=== PATIENT | male | born 1965 | race Caucasian/White ===

== ENCOUNTER 2017-04-18 20:54 | Emergency (ER) | payer OTHER ==
[2017-04-18] MEDS ORDERED: HYDROmorphONE/DILAUDID 1 MG/ML INJ IVP ONE (21:00)
[2017-04-18] MEDS ORDERED: NS 1,000 ML IV ONE (21:00)
--- NOTE | 2017-04-18 21:04 | EDPHY ---
H & P Time Seen by Provider: 04/18/17 21:00 HPI/ROS: CHIEF COMPLAINT: Burn HISTORY OF PRESENT ILLNESS: The patient is a 51-year-old man who comes to the emergency department by EMS complaining of a burn to his right flank and arm. He was working on a pipe when it burst open and steam sprayed onto his clothing and burned him through his clothing. No injury to his face or head or airway. He was given fentanyl by EMS and his pain went from an 8 to a 3. He has a history of hypertension. REVIEW OF SYSTEMS: Constitutional: denies: chills, fever, recent illness, recent injury EENTM: denies: blurred vision, double vision, nose congestion Respiratory: denies: cough, shortness of breath Cardiac: denies: chest pain, irregular heart rate, lightheadedness, palpitations Gastrointestinal/Abdominal: denies: abdominal pain, diarrhea, nausea, vomiting, blood streaked stools Genitourinary: denies: dysuria, frequency, hematuria, pain Musculoskeletal: denies: joint pain, muscle pain Skin: See HPI Neurological: denies: headache, numbness, paresthesia, tingling, dizziness, weakness Hematologic/Lymphatic: denies: blood clots, easy bleeding, easy bruising Immunologic/allergic: denies: HIV/AIDS, transplant EXAM: GENERAL: Well-appearing, well-nourished and in no acute distress. HEAD: Atraumatic, normocephalic. EYES: Pupils equal round and reactive to light, extraocular movements intact, sclera anicteric, conjunctiva are normal. ENT: TMs normal, nares patent, oropharynx clear without exudates. Moist mucous membranes. NECK: Normal range of motion, supple without lymphadenopathy or JVD. LUNGS: Breath sounds clear to auscultation bilaterally and equal. No wheezes rales or rhonchi. HEART: Regular rate and rhythm without murmurs, rubs or gallops. ABDOMEN: Soft, nontender, normoactive bowel sounds. No guarding, no rebound. No masses appreciated. BACK: No CVA tenderness, no spinal tenderness, step-offs or deformities EXTREMITIES: Normal range of motion, no pitting or edema. No clubbing or cyanosis. NEUROLOGICAL: Cranial nerves II through XII grossly intact. Normal speech, normal gait. 5/5 strength, normal movement in all extremities, normal sensation PSYCH: Normal mood, normal affect. SKIN: 2nd degree burn to right flank 2% body surface area surrounded by about 10% of body surface area 1st degree burn. Right arm has about 2% body surface area 2nd degree burn to right elbow/forearm with about 4% body surface area 1st degree burn surrounding. Patient also has 1st degree burn to his right gluteus and posterior thighs and part of his scrotum. Source: Patient Exam Limitations: No limitations - Personal History Current Tetanus/Diphtheria Vaccine: No - Medical/Surgical History Hx Asthma: No Hx Chronic Respiratory Disease: No Hx Diabetes: No Hx Cardiac Disease: No Hx Renal Disease: No Hx Cirrhosis: No Hx Alcoholism: No Hx HIV/AIDS: No - Family History Significant Family History: No pertinent family hx - Social History Alcohol Use: Sober Drug Use: None Constitutional: Initial Vital Signs Temperature (C) 36.7 C 04/18/17 20:54 Heart Rate 105 H 04/18/17 20:54 Respiratory Rate 24 H 04/18/17 20:54 Blood Pressure 162/107 H 04/18/17 20:54 O2 Sat (%) 96 04/18/17 20:54 O2 Delivery Mode [Post Nasal Cannula Procedure 3rd] O2 Delivery Mode [Post Non-Rebreather Mask Procedure 2nd] O2 Delivery Mode [Post Non-Rebreather Mask Procedure 1st] O2 Delivery Mode [Procedural Non-Rebreather Mask 4th] O2 Delivery Mode [Procedural Non-Rebreather Mask 2nd] O2 Delivery Mode [Procedural Non-Rebreather Mask 1st] O2 Delivery Mode [.Immediate Non-Rebreather Mask Pre-Procedure] O2 Delivery Mode Room Air O2 (L/minute) [Post Procedure 2 3rd] O2 (L/minute) [Post Procedure 15 2nd] O2 (L/minute) [Post Procedure 15 1st] O2 (L/minute) [Procedural 4th] 15 O2 (L/minute) [Procedural 3rd] 15 O2 (L/minute) [Procedural 2nd] 15 O2 (L/minute) [Procedural 1st] 15 O2 (L/minute) [.Immediate Pre- 15 Procedure] Allergies/Adverse Reactions: Penicillins Allergy (Verified 04/18/17 22:46) Home Medications: Medication Instructions Recorded Hydrocodone/APAP 5/325 [[place] 1 - 2 tab PO Q4H PRN #10 tab 04/18/17 5/325 (RX)] Medical Decision Making Procedures: Procedure: Procedural sedation. Indication: Debridement. A pre-sedation evaluation was completed on the patient just prior to the procedure. Patient is an appropriate candidate for procedural sedation with a normal 3-3-2 rule assessment and a Mallampati airway score of class 1. The risks of the sedation were discussed including but not limited to dysrhythmia, need for airway intervention or general anesthesia, disability, ; and verbal consent obtained. A timeout was observed and patient's identity confirmed. The patient was sedated with ketamine 100 mg. The patient was monitored with continuous pulse oximetry, capnography, and lunchroom monitor. There were no complications and no significant hypoxemia. I remained at the bedside for the sedation. The total time I spent in the procedural sedation was 16 minutes. The patient's 2nd degree maher were debrided with sterile water and sterile 4x4s. They were then dressed with bacitracin, Telfa and sterile gauze. He tolerated the procedure well. ED Course/Re-evaluation: 10:45 p.m. The patient is doing much better. I will treat him with Toradol for pain. I will give him a prescription for Vicodin if needed. We discussed limited use. I will prepare paperwork for discharge. Differential Diagnosis: Partial list of the Differential diagnosis considered include but were not limited to; 2nd degree burn, 1st degree and although unlikely based on the history and physical exam, I also considered third-degree burn, non accidental trauma, toxic exposure. I discussed these differential diagnoses and the plan with the patient as well as the usual and expected course. The patient understands that the diagnosis is provisional and that in medicine we are not always correct and that further workup is often warranted. Usual and customary warnings were given. All of the patient's questions were answered. The patient was instructed to return to the emergency department should the symptoms at all worsen or return, otherwise to followup with the physician as we discussed. - Data Points Medications Given: Discontinued Medications Hydrocodone Bitart/Acetaminophen ([place] 5/325mg Prepack#6) 1 btl TAKEHOME EDNOW ONE Stop: 04/18/17 23:38 Last Admin: 04/18/17 23:47 Dose: 1 btl Hydromorphone HCl (Dilaudid) 1 mg IVP EDNOW ONE Stop: 04/18/17 21:01 Last Admin: 04/18/17 21:25 Dose: 1 mg Sodium Chloride (Ns) 1,000 mls @ 0 mls/hr IV ONCE ONE; Wide Open PRN Reason: Protocol Stop: 04/18/17 21:01 Last Admin: 04/18/17 21:20 Dose: 1,000 mls Ketamine HCl (Ketamine) 90 mg IVP EDNOW ONE Stop: 04/18/17 21:36 Last Admin: 04/18/17 21:36 Dose: 90 mg Ketorolac Tromethamine (Toradol) 15 mg IVP EDNOW ONE Stop: 04/18/17 22:47 Last Admin: 04/18/17 23:03 Dose: 15 mg Departure - Departure Disposition: Home, Routine, Self-Care Clinical Impression: 2nd degree burn, First degree burn Condition: Fair Instructions: Second Degree Burn (ED) Additional Instructions: Continue to dress her wounds with bacitracin and gauze as instructed twice daily and follow up with Dr. Yeh from surgery. Referrals: Patient,NotPresent [Unknown] - As per Instructions Alfonso Yeh MD [Medical Doctor] - As per Instructions Prescriptions: Hydrocodone/APAP 5/325 [[place] 5/325 (RX)] 1 - 2 tab PO Q4H PRN #10 tab PRN Reason: Pain, Moderate
[2017-04-18] MEDS ORDERED: KETAMINE 100 MG/10 ML SYR ONE (21:26)
[2017-04-18] MEDS ORDERED: KETAMINE 100 MG/10 ML SYR IVP ONE (21:35)
[2017-04-18] MEDS ORDERED: KETOROLAC 30 MG/1 ML SDV IVP ONE (22:46)
[2017-04-18 23:21] VITALS: BP 144/104; PULSE 110; RESP 18
[2017-04-18] MEDS ORDERED: HYDROCOD/APAP 5/325 PREPACK#6 BTL TAKEHOME ONE (23:37)
[2017-04-19 00:24] VITALS: TEMP 98.6; O2SAT 94
== END 2017-04-19 00:22 | disposition home or self-care (01) ==
DX: T21.22XA Burn of second degree of abdominal wall, initial encounter (principal); T22.231A Burn of second degree of right upper arm, initial encounter; T22.221A Burn of second degree of right elbow, initial encounter; T22.211A Burn of second degree of right forearm, initial encounter; T21.15XA Burn of first degree of buttock, initial encounter; T31.0 Burns involving less than 10% of body surface; E86.9 Volume depletion, unspecified; X19.XXXA Contact with other heat and hot substances, initial encounter; Y92.69 Other specified industrial and construction area as the place of occurrence of the external cause; Y99.0 Civilian activity done for income or pay; Y93.89 Activity, other specified
CPT/HCPCS: 96374; J1170; J1885